=== PATIENT | male | born 1965 | race Caucasian/White ===

== ENCOUNTER 2021-09-29 15:08 | Emergency (ER) | payer SELFPAY ==
[2021-09-29] MEDS ORDERED: Morphine 4 MG/ML VIAL ONE (18:39)
== END 2021-09-29 19:00 | disposition home or self-care (01) ==
LOC: ERS 15:08
DX: S32.011A Stable burst fracture of first lumbar vertebra, initial encounter for closed fracture (principal); S32.029A Unspecified fracture of second lumbar vertebra, initial encounter for closed fracture; J44.9 Chronic obstructive pulmonary disease, unspecified; F17.210 Nicotine dependence, cigarettes, uncomplicated; W17.89XA Other fall from one level to another, initial encounter
CPT/HCPCS: 72131; 96372; J2270

== ENCOUNTER 2022-04-29 10:10 | Outpatient (CLI) | payer OTHER | END 2022-04-29 10:11 | disposition home or self-care (01) | LOC: TBSIIMAG 10:10 | PROVIDERS: ATTEND Neurological Surgery | DX: M47.26 Other spondylosis with radiculopathy, lumbar region (principal); M47.815 Spondylosis without myelopathy or radiculopathy, thoracolumbar region; M47.817 Spondylosis without myelopathy or radiculopathy, lumbosacral region | CPT/HCPCS: 72100; 72148 ==